=== PATIENT | female | born 1935 | race Caucasian/White ===

== ENCOUNTER 2017-03-07 03:13 | Inpatient (IN) | payer MEDICARE, MEDICAID ==
[~2017-03-07] VITALS: Ht 167.6 cm; Wt 82.3 kg
[~2017-03-07 03:13] MED LIST: (None)1 % OD; ASPIRIN EC81 MG PO; AZITHROMYCIN500 MG PO; DEPO-MEDROL40 MG/ML IJ; DIABETIC SHOES EX; DIFLUCAN100 MG PO; ELIQUIS2.5 MG PO; ELIQUIS5 MG PO; FLAGYL500 MG PO; GLUCOPHAGE500 MG PO; KETOROLAC TROME0.4 % OD; LASIX 20 MG TAB20 MG PO; LASIX20 MG PO; LOPRESSOR 550 MG/TAB PO; LOSARTAN POT25 MG PO; Levaquin PO; MEDDOSEPAK PO; METOPROL TAR25 M1 OR; METOPROL TAR25 MG PO; METOPROL TAR50 MG PO; MUCINEX600 MG PO; MYCELEX15 GM/TUBE EX; NORCO1 TA1 PO; OFLOXACIN0.3 % OD; PLAVIX75 MG; PREVACID30 M1 PO; RESTORIL15 MG PO; RESTORIL30 MG OR; ROBITUSSIN AC10 ML PO; SURFAK240 MG/CAP PO; TESSALON PER100 MG PO; TESSALON PERLE100 MG PO; TRIAMCINOLON0.5 % EX; TRUETEST STRIPS VI; ULTRAM50 M1 PO; WAL-FEX D 1212 HOUR PO; ZANAFLEX2 MG PO; ZPAK PO
--- NOTE | 2017-03-07 03:13 | NUR ---
PT TO ROOM 13 BY EMS FOR FALL OUT OF BED AT HOME WITH LEFT SHOULDER/ARM PAIN
--- NOTE | 2017-03-07 03:20 | NUR ---
DISCUSSED ALLERGIES WITH PT. PT RELATED SHE WAS ALLERGIC TO PCN, GETS HIVE, DOES NOT KNOW ABOUT MORPHINE.
--- NOTE | 2017-03-07 03:25 | NUR ---
PT UNABLE TO ROLL ON SIDE DUE TO INJURY. IM INJ TO R THIGH VL.
--- NOTE | 2017-03-07 03:55 | NUR ---
PT WITH NO REACTIONS NOTED TO MORPHINE. NO RASH NOTED, DENIES ITCHING.
[2017-03-07] MEDS ORDERED: METFORMIN1000 MG PO (04:15)
--- NOTE | 2017-03-07 04:19 | NUR ---
PT RELATED PAIN IMPROVING TO L SHOULDER,ONLY IF SHE DOESNOT MOVE IT.
--- NOTE | 2017-03-07 04:30 | NUR ---
PT C/O PAIN TO RIGHT THIGH.
--- NOTE | 2017-03-07 05:01 | NUR ---
NO RASH NOTED FROM MORPHINE.
--- NOTE | 2017-03-07 05:17 | NUR ---
PT WITH EYES CLOSED,CALL MEMBRENO IN REACH.
--- NOTE | 2017-03-07 06:37 | NUR ---
PT RELATED PAIN TO R LEG IMPROVED. L SHOULDER PAIN 01/22
--- NOTE | 2017-03-07 06:45 | NUR ---
REPORT TO EDMUND DANG.
[2017-03-07 06:48] LABS: URINE BILIRUBIN - DIPSTICK NEGATIVE (NEGATIVE); URINE BLOOD DIPSTICK NEGATIVE (NEGATIVE); URINE CLARITY CLEAR; URINE COLOR YELLOW; URINE GLUCOSE - DIPSTICK NEGATIVE (NEGATIVE); URINE KETONE NEGATIVE (NEGATIVE); URINE PROTEIN - DIPSTICK NEGATIVE (NEG-TRACE); URINE UROBILINOGEN - DIPSTICK 0.2 E.U./dL (0.2)
[2017-03-07 06:48] LABS: HEMATOCRIT 35.5 % (37.0-47.0); HEMOGLOBIN 11.8 g/dl (12.0-16.0); IMMATURE GRANULOCYTES 0.3 % (0.0-1.0); MEAN CELL VOLUME 98.6 fL CALC (80.0-100.0); MEAN CORPUSCULAR HGB 32.8 pG CALC (26.0-32.0); MEAN CORPUSCULAR HGB CONC 33.2 g/L CALC (32.0-36.0); NEUT# 9.28 thou/uL (2.00-7.15); RED BLOOD COUNT 3.6 mill/uL (4.20-5.60); RED CELL DISTRI WIDTH 12.4 % (11.5-15.5)
[2017-03-07 06:50] LABS: URINE LEUK ESTERASE SMALL (NEGATIVE); URINE NITRITE - DIPSTICK POSITIVE (Negative)
[2017-03-07 06:57] LABS: URINE RBC 0-2 RBC/hpf (0-5)
[2017-03-07 06:58] LABS: URINE BACTERIA MANY hpf
[2017-03-07 07:06] LABS: ALBUMIN 4.4 g/dL (3.2-5.0); BILIRUBIN, TOTAL 0.7 mg/dL (0.0-1.4); CALCIUM 10.2 mg/dL (8.4-10.2); CREATININE 1.1 mg/dL (0.5-1.0); POTASSIUM 4.6 mmol/l (3.5-5.1); TOTAL PROTEIN 7.8 g/dL (6.3-8.2)
--- NOTE | 2017-03-07 07:10 | NUR ---
report called to
--- NOTE | 2017-03-07 07:20 | NUR ---
TO MS2 VIA LEONOR. CLAIRE. THANKED STAFFF OR CARE
--- NOTE | 2017-03-07 07:30 | NUR ---
PT ARRIVED TO THE UNIT VIA STRETCHER ACCOMPANIED BY STAFF. IV SITE IS FREE FROM REDNESS OR EDEMA. LEFT ARM IN THE SLING/
--- NOTE | 2017-03-07 07:35 | NUR ---
TO FLOOR VIA STRETCHER, ASSISTED Pt TO BED.. BEDSIDE REPORT TO PAYTON ARREGUIN.
[2017-03-07 08:30] VITALS: BP 128/85
--- NOTE | 2017-03-07 10:16 | NUR ---
ASSESSMENT IS COMPLETD: PT IS RESTING IN BED AFTER PAIN MEDICATION WAS GIVEN.
[2017-03-07 11:11] VITALS: BP 92/54
--- NOTE | 2017-03-07 12:45 | NUR ---
PT HAS BEEN RESTING WITH NO DISTRESS NOTED. CONTINUE TO OBSERVE AND MONITOR.
[2017-03-07 15:47] VITALS: BP 100/60
--- NOTE | 2017-03-07 16:30 | NUR ---
PT IS RELAXING IN BED FAMILY IN TO VISIT WITH PT. WOKE HER UP AND STATED "I AM PAIN , HAS BEEN SLEEPING ALL DAY". INFORMED GRANDDAUGHTER AND WAS GIVEN THE CODE TO CALL AND CHECK ON PT.
[2017-03-07 18:50] VITALS: BP 151/68
--- NOTE | 2017-03-07 20:07 | NUR ---
PATIENT RESTING IN BED AT THIS TIME AWAKE ALERT AND ORIENTEDX3. PATIENT WITH SLING TO LEFT UE. CMS TO FINGERS ARE WNL. PATIENT ATE WELL FOR DINNER. HEP LOCK TO RIGHT FOREARM-SITE APPEARS HEALTHY AT THIS TIME. PATIENT MAX ASSIT OOB TO THE CHAIR-TOLERATED FAIR WITH SOME PAIN. LEFT ARM ELEVATED ON PILLOW AND COLD PACK TO LEFT SHOULDER FOR COMFORT. ENCOURAGED CDB EXERCISES AND USE OF IS Q1H WHILE AWAKE TO PREVENT ANY PULM COMPLICATIONS. VERBALIZES UNDERSTANDING OF THE STATED. SAFETY PRECAUTIONS REINFORCED. CALL LIGHT IN REACH. WILL CONT TO MONITOR.
--- NOTE | 2017-03-07 22:00 | NUR ---
PATIENT MAX ASSIST TO BSC AND THEN TO BED. PATIENT VOIDED 100CC OF URINE. LEFT ARM REMAINS IN SLING AND LEFT ARM ON PILLOW WITH ICE PACK TO LEFT SHOULDER. CMS TO FINGER WNL. PATIENT C/O LEFT SHOULDER PAIN-9/10 ON PAIN SCALE. MEDICATED WITH DILAUDID 1MG IVP ORDERED. SAFETY PRECAUTIONS REINFORCED. CALL LIGHT IN REACH. WILL CONT TO MONITOR.
[2017-03-08] VITALS: BP 115/58
[2017-03-08 04:20] VITALS: BP 131/67
--- NOTE | 2017-03-08 04:59 | NUR ---
PATIENT RESTING IN BED WITH LEFT ARM ELEVATED AND IN SLING. PATIENT MEDICATED FOR LEFT SHOULDER PAIN WITH LORTAB 5/325MG PO FOR 8/10 THROBBING PAIN. CALL LIGHT IN REACH. WILL CONT TO MONITOR.
[2017-03-08 06:53] LABS: HEMATOCRIT 31.1 % (37.0-47.0); HEMOGLOBIN 10.2 g/dl (12.0-16.0); IMMATURE GRANULOCYTES 0.4 % (0.0-1.0); MEAN CELL VOLUME 100.3 fL CALC (80.0-100.0); MEAN CORPUSCULAR HGB 32.9 pG CALC (26.0-32.0); MEAN CORPUSCULAR HGB CONC 32.8 g/L CALC (32.0-36.0); NEUT# 7.75 thou/uL (2.00-7.15); RED BLOOD COUNT 3.1 mill/uL (4.20-5.60)
[2017-03-08 07:24] LABS: BILIRUBIN, TOTAL 0.9 mg/dL (0.0-1.4); CALCIUM 9.6 mg/dL (8.4-10.2); CREATININE 1.8 mg/dL (0.5-1.0)
[2017-03-08 07:29] LABS: POTASSIUM 5.2 mmol/l (3.5-5.1)
[2017-03-08 08:05] VITALS: BP 89/59
--- NOTE | 2017-03-08 08:05 | NUR ---
ASSESSMENT IS COMPLETED: IV SITE IS FREE FROM REDNESS OR EDEMA. LEFT ARM REMAINS IN THE SLING. CONTINUE TO OBSERVE AND MONITOR.
[2017-03-08 12:00] VITALS: BP 109/41
--- NOTE | 2017-03-08 12:00 | NUR ---
PT REMAINS SITTING UP IN THE CHAIR. IV SITE IS FREE FROM REDNESS OR EDEMA. LEFT ARM IN THE SLING
[2017-03-08 15:50] VITALS: BP 112/51
--- NOTE | 2017-03-08 16:00 | NUR ---
PT REMAINS SITTING UP IN THE CHAIR, HAS BEEN GOING BACK AND FORTH TO THE BSC. WITH ASSISTANCE
--- NOTE | 2017-03-08 20:00 | NUR ---
PATIENT RESTING IN BED ON FIRST ROUNDS-PATIENT IS AWAKE ALERT AND ORIENTEDX3. PATIENT WITH SLING TO LEFT UE IN USE AND ADJUSTED, ELEVATED ON PILLOW. CMS CHECK TO LEFT FINGERS WNL. PATIENT WITH HEP LOCK TO RIGHT AC-SITE APPEARS HEALTHY AT THIS TIME. SAFETY PRECAUTIONS REINFORCED WITH PATIENT. CALL LIGHT IN REACH. WILL CONT TO MONITOR.
[2017-03-08 20:06] VITALS: BP 160/59
--- NOTE | 2017-03-08 21:22 | NUR ---
PATIENT RECIEVED FROM ICU VIA BED WITH ICU STAFF IN ATENDANCE. PATIENT IS ALERT AND ORIENTEDX3. PATIENT WITH HOB ELEVATED AND POSITIONED ON LEFT SIDE WITH ASSISTANCE OF PILLOWS. PATIENT WITH O2 VIA NASAL CANNULA IN PLACE AT 4LPM. PATIENT WITH MCKEON CATH PATENT AND DRAINING YELLOW URINE. PATIENT ORIENTED TO ROOM AND SURROUNDINGS. INSTRUCTED ON USING NURSE CALL LIGHT SYSTEM AND TV REMOTE. CALL LIGHT IN REACH. WILL CONT TO MONITOR.
--- NOTE | 2017-03-08 22:00 | NUR ---
PATIENT WAS MAX TO THE BSC TO VOID AND WAS GIVEN BATH. PATIENT ASSISTED BACK TO THE BED. PATIENT C/O LEFT SHOULDER PAIN-MEDICATED WITH LORTAB 5/325MG PO ORDERED. IVF NS STARTED ORDERED VIA RIGHT AC SITE AT 100CC/HR. ADJUSTED IN BED. SLING ON AND ICE PACK TO LEFT SHOULDER FOR COMFORT. CALL LIGHT IN REACH. WILL CONT TO MONITOR
--- NOTE | 2017-03-09 00:34 | NUR ---
PATIENT RESTING IN BED WITH HOB SLIGHTLY ELEVATED AND APPEARS SLEEPING WITH EYES CLOSED. LEFT ARM REMAINS IN SLING AND ELEVATED ON PILLOW. ICE PACK TO SHOULDER BEING USED PRN FOR COMFORT. IVF NS PATENT AND INFUSING AT 100CC/HR VIA RIGHT AC SITE. CALL LIGHT IN REACH. WILL CONT TO MONITOR.
--- NOTE | 2017-03-09 02:00 | NUR ---
PATIENT MAX ASSIST TO BSC TO VOID 300 CC OF FOUL SMELLING URINE. ASSIST BACK TO BED. PATIENT MEDICATED WITH DILAUDID 1MG IVP ORDERED. CALL LIGHT IN REACH. WILL CONT TO MONITOR.
--- NOTE | 2017-03-09 03:42 | NUR ---
PATIENT APPEARS SLEEPING AT THIS TIME. CALL LIGHT IN REACH. WILL CONT TO MONITOR.
[2017-03-09 04:36] VITALS: BP 117/69
[2017-03-09 06:02] LABS: HEMATOCRIT 32.4 % (37.0-47.0); HEMOGLOBIN 10.5 g/dl (12.0-16.0); IMMATURE GRANULOCYTES 0.4 % (0.0-1.0); MEAN CELL VOLUME 100.9 fL CALC (80.0-100.0); MEAN CORPUSCULAR HGB 32.7 pG CALC (26.0-32.0); MEAN CORPUSCULAR HGB CONC 32.4 g/L CALC (32.0-36.0); NEUT# 6.69 thou/uL (2.00-7.15); RED BLOOD COUNT 3.21 mill/uL (4.20-5.60); RED CELL DISTRI WIDTH 12.9 % (11.5-15.5)
[2017-03-09 06:21] LABS: BILIRUBIN, TOTAL 1.2 mg/dL (0.0-1.4); CALCIUM 9.5 mg/dL (8.4-10.2); CREATININE 1.5 mg/dL (0.5-1.0); TOTAL PROTEIN 7.2 g/dL (6.3-8.2)
[2017-03-09 06:23] LABS: POTASSIUM 4.6 mmol/l (3.5-5.1)
[2017-03-09 07:25] VITALS: BP 108/55
--- NOTE | 2017-03-09 07:40 | NUR ---
PT ASSISTED TO BSC AND ASSISTED TO RECLINER; PT ASSISTED WITH BREAKFAST SET UP; IVF INFUSING WITHOUT DIFFICULTY; PT C/O PAIN TO LT ARM, WILL MEDICATED; CALL MEMBRENO WITHIN REACH; WILL CONTINUE TO MONITOR.
--- NOTE | 2017-03-09 09:00 | NUR ---
PHYSICAL THERAPY IN WITH PT
--- NOTE | 2017-03-09 12:01 | NUR ---
PT UP TO BSC; VOIDS WITHOUT DIFFICULTY; NO COMPLAINTS VOICED AT THIS TIME; LT ARM SLING IN PLACE; IVF INFUSING WITHOUT DIFFICULTY; WILL CONTINUE TO MONITOR.
[2017-03-09] MEDS ORDERED: PERCOCET 5/321 COMBO PO (14:51)
[2017-03-09] MEDS ORDERED: TEMAZEPAM15 MG PO (14:52)
[2017-03-09] MEDS ORDERED: CIPROFLOXACN250 MG PO (14:53)
--- NOTE | 2017-03-09 15:28 | NUR ---
PT MEDICATED FOR C/O LT SHOULDER PAIN 04/24; IVF STOPPED AT THIS TIME; CALL MEMBRENO WITHIN REACH; WILL CONTINUE TO MONITOR.
[2017-03-09 15:29] VITALS: BP 108/55
--- NOTE | 2017-03-09 15:57 | NUR ---
Discharge instructions given. Patient verbalizes understanding of same. Discharged in stable condition via [facility] with *Other. All belongings sent with pt.
== END 2017-03-09 15:56 | DRG 563 ==
LOC: ENPENDDIS → ED 03:13 → ED-I 06:04 → ED 06:46 → MS2 06:47
PROVIDERS: Emergency Medicine; ADMIT Internal Medicine Geriatric Medicine; ATTEND Internal Medicine Geriatric Medicine
DX: S42.252A Displaced fracture of greater tuberosity of left humerus, initial encounter for closed fracture (principal); I48.2 Chronic atrial fibrillation; J44.9 Chronic obstructive pulmonary disease, unspecified; I10 Essential (primary) hypertension; E11.9 Type 2 diabetes mellitus without complications; I25.10 Atherosclerotic heart disease of native coronary artery without angina pectoris; K21.9 Gastro-esophageal reflux disease without esophagitis; M19.90 Unspecified osteoarthritis, unspecified site; E03.9 Hypothyroidism, unspecified; M81.0 Age-related osteoporosis without current pathological fracture; W06.XXXA Fall from bed, initial encounter; Y92.003 Bedroom of unspecified non-institutional (private) residence as the place of occurrence of the external cause; Z79.84 Long term (current) use of oral hypoglycemic drugs; Z95.1 Presence of aortocoronary bypass graft